=== PATIENT | female | born 1985 ===

== ENCOUNTER 2017-07-08 10:40 | Inpatient (IN) | payer OTHER ==
[2017-07-08 10:51] VITALS: BMI 27.3
[2017-07-08] MEDS ORDERED: Oxytocin 30 UNITS in Sodium Chloride 0.9% 500 ML IV SCH (11:30)
[2017-07-08] MEDS ORDERED: Lactated Ringer's 1,000 ML IV SCH (11:30)
[2017-07-08] MEDS: Lactated Ringer's 1,000 ML IV SCH ×2 (12:03→13:10)
[2017-07-08 12:13] LABS: BASO # 0.1 K/uL (0.0-0.2); BASO % 0.7 % (0.0-2.0); EOS # 0.1 K/uL (0.0-0.7); EOS % 0.8 % (0.0-4.0); HEMATOCRIT 33.2 % (34.0-47.0); LYMPH # 1.6 K/uL (1.0-4.3); LYMPH % 17.6 % (20.0-40.0); MEAN CELL VOLUME 87.1 fl (81.0-99.0); MEAN CORPUSCULAR HEMOGLOBIN 31.3 pg (27.0-31.0); MONO # 0.8 K/uL (0.0-0.8); MONO % 8.4 % (0.0-10.0); NEUT # 6.6 K/uL (1.8-7.0); NEUT % 72.5 % (50.0-75.0); NRBC % 0.1 % (0.0-0.0); RED CELL DISTRIBUTION WIDTH 13.7 % (11.5-14.5); WHITE BLOOD COUNT 9.1 K/uL (4.8-10.8)
[2017-07-08] MEDS ORDERED: Oxytocin 30 UNITS in Sodium Chloride 0.9% 500 ML IV ONE (13:13)
[2017-07-08] MEDS ORDERED: Fentanyl/Bupivacaine HCl 250 ML EPI ONE ×2 (14:50→15:24)
--- NOTE | 2017-07-08 16:15 | OBHP ---
Datetime: 07/08/2017 16:10 IP Adm Impression: Term, intrauterine ; Active labor IP Admit Plan: Admit to unit Admit Comment, IP Provider: The patient is a estimated gestational age 38 weeks patient presen ts to labor and delivery complaining of uterine contractions she reports good movement no vagin al bleeding or leakage of fluid. Patient was seen in OB ED last night with similar symptoms. Patient denies any complications. Past medical history none Past surgical history ectopic Medications none No known drug allergies Social history denies alcohol tobacco use Previous obstetrical history one ectopic 1 normal spontaneous vaginal delivery Review of systems patient denies headache chest pain shortness of breath palpitations nausea vomit ing diarrhea dysuria or cold intolerance is bruisability musculoskeletal or neurological complaints Vital signs stable afebrile Physical exam see notes Intrauterine 38 weeks 4 cm dilated Admit, IV fluid hydration, routine labs Vertex presentation and adequate pelvis estimated weight 7-1/2 pounds Pelvic Type - PN: Adequate Extremities - PN: Normal Abdomen - PN: Normal Back - PN: Normal Breast - PN: Normal Lungs - PN: Normal Heart - PN: Normal Thyroid - PN: Normal Neurologic - PN: Normal HEENT - PN: Normal General - PN: Normal Presentation-Admit: Vertex FHR - Baseline A Provider: 156 Gestation - Est Wks by US: 39.0 Pool Provider: Negative EGA AdmitDate IP: 38.5 Vital Signs Provider: Reviewed IP Chief Complaint: Uterine contractions; Maternal discomfort NICHD Variability Prov Fetus A: Moderate 6-25bpm NICHD Accel Fetus A IP Provider: [id number] NICHD Decel Fetus A IP Provider: None Dilatation, Provider: 4 Effacement, Provider: 90 Station, Provider: -2 Genitourinary Exam: Normal DTRs - PN: Normal
[2017-07-08] MEDS ORDERED: Oxycodone/Acetaminophen 5/325 mg Tab PO PRN ×4 (19:28→20:04)
--- NOTE | 2017-07-09 00:23 | OBDS ---
DELIVERY PERSONNEL Delivery Doctor: Barron Philip MD Scrub Nurse: blas Continuous Drier Helper: Layla Estes RN Anesthesiologist: / Resident: na MATERNAL INFORMATION Delivery Anesthesia: Epidural Medications in Delivery: Pitocin 30 units in 500 cc LR Estimated Blood Loss (ml): 100 Placenta Cultured: No Maternal Complications: None RN Comments: tolerated well by pt.Delivery attended by Provider Comments: Delivered a live baby girl at 6:16 PM the baby was bulb suctioned on the perineum and the transfer maternal chest. The cord was clamped, 3 vessels noted Kings's obtained and sent to the lab. The placenta was delivered at 6:20 PM intact. The estimated blood loss was 100 mL, Pitocin w as infused for uterine involution. There were no vaginal tears the mother tolerated procedure well an d went to the nursery with Apgars 99 LABOR SUMMARY EDC: 07/17/2017 00:00 No. Babies in Womb: 1 Attempted: No Labor Anesthesia: Epidural LABOR INFORMATION Reason for Induction: Not Applicable Onset of Labor: 07/08/2017 13:30 Complete Dilatation: 07/08/2017 18:10 Oxytocin: Augmentation Group B Beta Strep: Negative Antibiotics # of Doses: na Antibiotics Time of Last Dose: na Steroids Given: None Reason Steroids Not Administered: Not Applicable MEMBRANES Membranes Rupture Method: Artificial Rupture of Membranes: 07/08/2017 11:30 Length of Rupture (hrs): 6.77 Amniotic Fluid Color: Clear Amniotic Fluid Amount: Scant Amniotic Fluid Odor: Normal STAGES OF LABOR Stage 1 hrs: 4 Stage 1 min: 40 Stage 2 hrs: 0 Stage 2 min: 6 Stage 3 hrs: 0 Stage 3 min: 4 Total Time in Labor hrs: 4 Total Time in Labor min: 50 VAGINAL DELIVERY Episiotomy: None Laceration Extension: N/A Laceration Type: None Laceration Repair: Not Applicable Initial Vag Sponge Count: 5 Final Vag Sponge Count: 5 Initial Vag Sharps Count: 0 Final Vag Sharps Count: 0 Sponge Count Correct: Yes Sharps Count Correct: N/A Count Comment: sponge count with BABY A INFORMATION Delivery Date/Time: 07/08/2017 18:16 Method of Delivery: Vaginal Born in Route : No : N/A (Annotations: Data stored by [facility] on behalf of user) Forceps: N/A Vacuum Extraction: N/A Shoulder Dystocia : No SHOULDER DYSTOCIA BABY A Infant Delivery Date/Time: 07/08/2017 18:16 PRESENTATION/POSITION BABY A Presentation: Cephalic Breech Presentation: N/A PLACENTA INFORMATION BABY A Placenta Delivery Time : 07/08/2017 18:20 Placenta Method of Delivery: Spontaneous Placenta Status: Delivered SCORES BABY A Heart Rate 1 min: >100 bpm Resp Effort 1 min: Good Cry Reflex Irritability 1 min: Cough or Sneeze or Pulls Away Muscle Tone 1 min: Active Motion Color 1 min: Body Eleva, Extremities Blue Resuscitation Effort 1 min: Tactile Stimulation SCORE 1 MIN: 9 Heart Rate 5 min: >100 bpm Resp Effort 5 min: Good Cry Reflex Irritability 5 min: Cough or Sneeze or Pulls Away Muscle Tone 5 min: Active Motion Color 5 min: Body Eleva, Extremities Blue Resuscitation Effort 5 min: Tactile Stimulation SCORE 5 MIN: 9 INFORMATION BABY A Gestational Age at Delivery: 38.5 Gestational Status: Term Infant Outcome : Liveborn Infant Condition : Stable Sex: Female IDENTIFICATION/MEDS BABY A ID Band Number: [id number] ID Band Location: Left Leg; Left Arm Vitamin K Given : Not Given Erythromycin Given: Not Given WEIGHT/LENGTH BABY A Infant Birthweight (gms): 3300 Infant Weight (lb): 7 Infant Weight (oz): 4 Length Inches: 20.00 Length cms: 50.8 CORD INFORMATION BABY A No. Cord Vessels: 3 Nuchal Cord : N/A Cord pH Baby Arterial: na Cord pH Baby Venous: na Cord Blood Taken: Yes Infant Suction: Mouth ASSESSMENT BABY A Complications: None Physical Findings at Delivery: Within Normal Limits Infant Respirations: Appears Normal Hand Ii Tube Bender/ALS Called : No Care By: /Jacques Couch Transferred To: [place] [facility]
[2017-07-09 06:39] LABS: HEMATOCRIT 31.1 % (34.0-47.0); MEAN CELL VOLUME 88.4 fl (81.0-99.0); MEAN CORPUSCULAR HEMOGLOBIN 31.4 pg (27.0-31.0); MEAN CORPUSCULAR HGB CONC 35.5 g/dL (33.0-37.0); RED CELL DISTRIBUTION WIDTH 13.9 % (11.5-14.5); WHITE BLOOD COUNT 12.3 K/uL (4.8-10.8)
--- NOTE | 2017-07-09 09:04 | OBPPN ---
Datetime: 07/09/2017 08:59 PP Pain Prov: Within normal limits PP Lochia Prov: Normal PP Vulva/Perineum Prov: Normal PP Extremities Prov: Normal PP Progress Prov: Normal PP Impression Prov: Normal progression PP Plan Prov: Continue present management PP Progress Note Prov: PPD 1 s/p , doing well, breast feeding Continue current care Vital Signs Provider PP: Reviewed
--- NOTE | 2017-07-10 10:18 | OBPPN ---
Datetime: 07/10/2017 10:15 PP Pain Prov: Within normal limits PP Nausea Prov: Denies PP Flatus Prov: Yes PP BM Prov: Yes PP Breasts Prov: Normal PP Heart Prov: Normal PP Lungs Prov: Normal PP Abdomen/Uterus Prov: Normal PP Lochia Prov: Normal PP Vulva/Perineum Prov: Normal PP CVA Tenderness Prov: Normal PP Extremities Prov: Normal PP Impression Prov: Normal progression PP Plan Prov: Discharge PP Progress Note Prov: A: S/P day 2 PLAN: discharge home; follow up 6w Vital Signs Provider PP: Reviewed; Within Normal Limits
--- NOTE | 2017-07-10 10:19 | OBDCSUM ---
Datetime: 07/10/2017 10:16 Discharged to, Provider: Home Follow up at, Provider: [facility] Disch Instr Activity: Normal activity Disch Instr Diet: Regular Discharge Instructions, Provider: Routine instructions given Discharge Diagnosis, Provider: Term Delivered Follow up in weeks, Provider: 6w Disch Referrals: None Contraception discussed, Prov: Yes
[2017-07-10 20:08] VITALS: BP 100/49; PULSE 94; RESP 18; TEMP 98.1; O2SAT 100
== END 2017-07-10 13:05 | disposition home or self-care (01) | DRG 775 ==
LOC: H.L&D 11:24 → H.OB/GYN 21:00
PROVIDERS: ADMIT Obstetrics & Gynecology Gynecology; ATTEND Obstetrics & Gynecology Gynecology
PROC: 10E0XZZ Delivery of Products of Conception, External Approach (ICD-10-PCS; principal; 2017-07-08)
PROC: 3E033VJ Introduction of Other Hormone into Peripheral Vein, Percutaneous Approach (ICD-10-PCS; 2017-07-08)
PROC: 4A1HXCZ Monitoring of Products of Conception, Cardiac Rate, External Approach (ICD-10-PCS; 2017-07-08)
DX: O80 Encounter for full-term uncomplicated delivery (principal); Z87.59 Personal history of other complications of pregnancy, childbirth and the puerperium; Z37.0 Single live birth; Z3A.38 38 weeks gestation of pregnancy